=== PATIENT | male | born 1950 | race Caucasian/White ===

== ENCOUNTER 2018-02-03 17:18 | Emergency (ER) | payer MEDICARE ==
[~2018-02-03] VITALS: Ht 167.6 cm; Wt 86.2 kg
== END 2018-02-03 17:59 | disposition home or self-care (01) ==
LOC: ER 17:18
DX: S91.331A Puncture wound without foreign body, right foot, initial encounter (principal); Z23 Encounter for immunization; W45.0XXA Nail entering through skin, initial encounter
CPT/HCPCS: 90471; 90714; 99282

== ENCOUNTER 2019-12-14 08:06 | Inpatient (IN) | payer MEDICARE, OTHER ==
[~2019-12-14] VITALS: Ht 167.6 cm; Wt 53.0 kg
[2019-12-14 08:53] LABS: BASOPHILS ABSOLUTE AUTO 0.06 K/mm3 (0.00-0.23); BASOPHILS PERCENT AUTO 1 % (0-2); EOSINOPHILS ABSOLUTE AUTO 0.09 K/mm3 (0.00-0.68); EOSINOPHILS PERCENT AUTO 1 % (0-6); Hematocrit 45.2 % (37.0-53.0); Hemoglobin 15.3 g/dL (13.5-17.5); IMMATURE GRAN ABSOLUTE AUTO 0.03 K/mm3 (0.00-0.10); IMMATURE GRAN PERCENT AUTO 0 % (0-1); LYMPHOCYTES ABSOLUTE AUTO 1.26 K/mm3 (0.84-5.20); LYMPHOCYTES PERCENT AUTO 16 % (21-46); MONOCYTES ABSOLUTE AUTO 0.64 K/mm3 (0.16-1.47); MONOCYTES PERCENT AUTO 8 % (4-13); Mean Corpuscular HGB 33.6 pg (26.0-34.0); Mean Corpuscular HGB Conc 33.8 g/dL (31.5-36.5); Mean Corpuscular Volume 99 fL (80-100); Mean Platelet Volume 11.4 fL (9.1-12.4); NEUTROPHILS ABSOLUTE AUTO 6.01 K/mm3 (1.96-9.15); NEUTROPHILS PERCENT AUTO 74 % (41-73); Platelet Count 179 K/mm3 (150-400); RDW Coefficient Variation 14.7 % (11.7-14.2); RDW Standard Deviation 54.3 fL (35.1-46.3); Red Blood Cell Count 4.56 M/mm3 (4.30-5.90); White Blood Cell Count 8.09 K/mm3 (4.00-11.30)
[2019-12-14 09:32] LABS: Alanine Aminotransfer (ALT/SGP 24 U/L (12-78); Albumin, Blood 3.6 g/dL (3.4-5.0); Albumin/Globulin Ratio 0.9 (0.8-1.8); Alk Phos 102 U/L (50-136); Anion Gap 8 mmol/L (6-16); Aspartate Aminotrans (AST/SGOT 31 U/L (12-37); Bilirubin, Total 1.3 mg/dL (0.1-1.0); Blood Urea Nitrogen 25 mg/dL (8-24); Bun/Creatinine Ratio 20.2 (12.0-20.0); CO2, Blood 22 mmol/L (21-32); Calcium, Blood 9.1 mg/dL (8.5-10.1); Chloride, Blood 109 mmol/L (98-108); Creatinine, Blood 1.24 mg/dL (0.60-1.20); Globulin, Blood 3.8 g/dL (2.2-4.0); Glomerular Filtration Rate >60 (60-); Glucose, Blood 90 mg/dL (70-99); Potassium, Blood 3.9 mmol/L (3.5-5.5); Sodium, Blood 139 mmol/L (136-145); Total Protein, Blood 7.4 g/dL (6.4-8.2)
[2019-12-14 09:35] LABS: Troponin I 0.613 ng/mL (0.000-0.040)
--- NOTE | 2019-12-14 14:25 | NUR ---
echocardiogram complete
[2019-12-14 16:41] LABS: U Amphetamine Screen Not Detected; U Barbituate Screen Not Detected; U Benzodiazapine Screen Not Detected; U Buprenorphine Screen Not Detected; U Cannabinoids Screen Not Detected; U Cocaine Screen Not Detected; U Methadone Screen Not Detected; U Methamphetamine Screen Not Detected; U Opiates Screen Not Detected; U Oxycodone Screen Not Detected; U Phencyclidine Screen Not Detected; U Propoxyphene Screen Not Detected
--- NOTE | 2019-12-14 18:43 | NUR ---
SHIFT SUMMARY PT WAS ADMITTED THIS AFTERNOON FROM ED ON 3LNC, CRACKLES NOTED IN LUKE LOWER BASES. BIPAP WAS BROUGHT UP WITH PT, HOWEVER PT HAS NOT REQUIRED USE OF IT SINCE ARRIVING TO FLOOR. TELEMETERY HAS SHOWN PT SINUS RHYTHM. PT WAS HYPTENSIVE UPON ARRIVAL AND NEW ORDERS RECEIVED FROM DR YI AND IMPLEMENTED. PT HAS DENIED ANY CHEST PAIN. TROPONINS WERE TRENDING DOWN. HEPARIN GTT WAS INITIATED PER PHARMACY DOSING, SEE EMAR. PT PLANNED FOR ANIGOGRAM TOMORROW.
--- NOTE | 2019-12-14 20:00 | NUR ---
ASSUMED CARE OF PT AT 1915. REPORT RECEIVED AT BEDSIDE. PT PRESENTS IN BED. ALERT AND ORIENTED. PLEASANT AND COOPERATIVE WITH CARE AND ASSESSEMENT. DENIES CHEST PAIN OR PRESSURE. NO COMPLAINTS OF DYSPNEA. WILL REVIEW CHART AND PLAN OF CARE FOR THIS PT.
--- NOTE | 2019-12-14 23:01 | NUR ---
PT HAS SLIGHT ELEVATION IN TROPONIN TO 0.60 CONTINUES WITHOUT COMPLAINTS OF CHEST PAIN OR PRESSURE. HEART RATE HAS TRENDED DOWNWARDS TO OCCASSIONALLY 55 BPM. WILL MONITOR CLOSELY. PT DOES HAVE NITROPASTE TO HIS LEFT CHEST WALL. WILL REMOVE AND NOTIFY PROVIDER IF NEEDED. CONTINUES ON HEPARIN DRIP. PHARMACY HAS ORDERED ADJUSTMENT WHICH WILL BE DONE.
[2019-12-15 05:19] LABS: Hematocrit 40.3 % (37.0-53.0); Hemoglobin 13.5 g/dL (13.5-17.5); Mean Corpuscular HGB 33.7 pg (26.0-34.0); Mean Corpuscular HGB Conc 33.5 g/dL (31.5-36.5); Mean Corpuscular Volume 101 fL (80-100); Mean Platelet Volume 11.6 fL (9.1-12.4); Platelet Count 175 K/mm3 (150-400); RDW Coefficient Variation 14.7 % (11.7-14.2); RDW Standard Deviation 55.4 fL (35.1-46.3); Red Blood Cell Count 4.01 M/mm3 (4.30-5.90); White Blood Cell Count 8.96 K/mm3 (4.00-11.30)
[2019-12-15 05:46] LABS: Alanine Aminotransfer (ALT/SGP 23 U/L (12-78); Albumin, Blood 2.8 g/dL (3.4-5.0); Albumin/Globulin Ratio 0.8 (0.8-1.8); Alk Phos 82 U/L (50-136); Anion Gap 5 mmol/L (6-16); Aspartate Aminotrans (AST/SGOT 21 U/L (12-37); Bilirubin, Total 0.9 mg/dL (0.1-1.0); Blood Urea Nitrogen 45 mg/dL (8-24); Bun/Creatinine Ratio 28.5 (12.0-20.0); CHOL/HDL RATIO 2.3; CO2, Blood 28 mmol/L (21-32); Calcium, Blood 8.6 mg/dL (8.5-10.1); Chloride, Blood 105 mmol/L (98-108); Cholesterol 155 mg/dL (50-200); Creatinine, Blood 1.58 mg/dL (0.60-1.20); Globulin, Blood 3.3 g/dL (2.2-4.0); Glomerular Filtration Rate 46 (60-); Glucose, Blood 92 mg/dL (70-99); HDL Cholesterol 67 mg/dL (>39); LDL/HDL RATIO 1.2; Low Density Lipoprotein Chol 78 mg/dL (0-110); Magnesium, Blood 2.1 mg/dL (1.6-2.4); Potassium, Blood 4.3 mmol/L (3.5-5.5); Sodium, Blood 138 mmol/L (136-145); Total Protein, Blood 6.1 g/dL (6.4-8.2); Triglycerides 49 mg/dL (30-160); Very Low Density Lipoprot Chol 9 mg/dL (6-32)
--- NOTE | 2019-12-15 06:50 | NUR ---
PT HAS BEEN ABLE TO AMUBLATE TO BATHROOM TO VOID WITHOUT EXPERIENCING CHEST PAIN OR INCREASE IN DYSPNEA. VOIDS Q.S. 2 L/M O2 PER NASAL CANNUAL ADEQUATE TO KEEP SATURATIONS > 90 PERCENT. WILL CONTINUE TO MONITOR PT, AND WILL REPORT OFF TO ONCOMING RN.
--- NOTE | 2019-12-15 17:52 | NUR ---
SUMMARY NO ACUTE CHANGES NOTED. PT CONTINUES TO DENY CP/PRESSURE, VSS, O2 VIA NC @2 L. PT IS INDEPENDENT TO THE BATHROOM, VOIDING WNL, TOLERATING PO INTAKE. HEPARIN GTT INFUSING PER EMAR. CALL LIGHT IN REACH. WCTM
--- NOTE | 2019-12-16 05:59 | NUR ---
SHIFT SUMMARY PT A&O X4. VSS. MONITOR SHOWS SB-SR, HR 50's-70's. SPO2 > 92% ON 2L NC TITRATED TO 1L NC THIS SHIFT. PT DENIES CP/DISCOMFORT. PT NPO SINCE MIDNIGHT FOR POSSIBLE ANGIO TODAY. HEPARIN GTT INFUSING PER ORDERS. WILL CONTINUE TO MONITOR & PROVIDE CARE UNTIL REPORT OFF TO DAY SHIFT RN.
[2019-12-16 10:37] LABS: BASOPHILS ABSOLUTE AUTO 0.07 K/mm3 (0.00-0.23); BASOPHILS PERCENT AUTO 1 % (0-2); EOSINOPHILS PERCENT AUTO 1 % (0-6); Hematocrit 45.3 % (37.0-53.0); Hemoglobin 14.9 g/dL (13.5-17.5); IMMATURE GRAN ABSOLUTE AUTO 0.05 K/mm3 (0.00-0.10); IMMATURE GRAN PERCENT AUTO 1 % (0-1); LYMPHOCYTES ABSOLUTE AUTO 1.62 K/mm3 (0.84-5.20); LYMPHOCYTES PERCENT AUTO 15 % (21-46); MONOCYTES ABSOLUTE AUTO 0.82 K/mm3 (0.16-1.47); MONOCYTES PERCENT AUTO 7 % (4-13); Mean Corpuscular HGB 33.3 pg (26.0-34.0); Mean Corpuscular HGB Conc 32.9 g/dL (31.5-36.5); Mean Corpuscular Volume 101 fL (80-100); Mean Platelet Volume 11.4 fL (9.1-12.4); NEUTROPHILS ABSOLUTE AUTO 8.41 K/mm3 (1.96-9.15); NEUTROPHILS PERCENT AUTO 76 % (41-73); Platelet Count 189 K/mm3 (150-400); RDW Coefficient Variation 14.6 % (11.7-14.2); RDW Standard Deviation 54.9 fL (35.1-46.3); Red Blood Cell Count 4.48 M/mm3 (4.30-5.90); White Blood Cell Count 11.07 K/mm3 (4.00-11.30)
[2019-12-16 10:57] LABS: Bun/Creatinine Ratio 27.2 (12.0-20.0); Creatinine, Blood 1.36 mg/dL (0.60-1.20); Potassium, Blood 4.3 mmol/L (3.5-5.5)
--- NOTE | 2019-12-16 18:34 | NUR ---
SUMMARY PT REMAINS A&O X4, VSS, ON ROOM AIR. PT HAS A RIGHT RADIAL/BRACHIAL ACCESS SITE FROM THE ANGIODRAM, BOTH DRSG'S REMAIN C/D/I, NO HEMATOMA OR BLEEDING NOTED, CIRC WNL. PT CONTINUES TO DENY CHEST PAIN. PT IS TOLERATING PO INTAKE, VOIDING WNL, INDEPENDENT IN ROOM. PT WILL BE TRANSFERRED TO [facility] FOR HIGHER LEVEL OF CARE PER , PTS FAMILY HAS BEEN NOTIFIED, REPORT CALLED TO [facility] [employer] OPERATOR @1830. PT IS SITTING UP IN BED WATHVING TV AT THIS TIME, CALL LIGHT IN REACH. TRANSPORT SCHEDULED TO [facility] @1845, TM.
--- NOTE | 2019-12-16 19:33 | NUR ---
COBRA TRANSFER PT PICKED UP BY [facility], TAKEN BY AUGUSTO IN AMBULANCE @ 1930 W/ IV HEPARIN GTT INFUSING PER ORDERS. PT A&O X4. VSS. SPO2 > 92% ON RA. R RADIAL ACCESS SITE WNL W/ NO BLEEDING, NO HEMATOMA, ARM BOARD IN PLACE. R BRACHIAL ACCESS SITE WNL. DAY SHIFT RN REPORTED TO HAVE CALLED ACCEPTING RN @ [facility] PRIOR TO SHIFT CHANGE, SEE PREVIOUS NOTE.
== END 2019-12-16 19:34 | disposition short-term general hospital (02) | DRG 280 ==
LOC: ER 08:06 → PCU 12:11
PROVIDERS: Emergency Medicine; Nurse Practitioner Acute Care; ADMIT Internal Medicine
PROC: 5A09357 Assistance with Respiratory Ventilation, Less than 24 Consecutive Hours, Continuous Positive Airway Pressure (ICD-10-PCS; 2019-12-14)
PROC: 4A023N8 Measurement of Cardiac Sampling and Pressure, Bilateral, Percutaneous Approach (ICD-10-PCS; principal; 2019-12-16)
PROC: B2101ZZ Fluoroscopy of Single Coronary Artery using Low Osmolar Contrast (ICD-10-PCS; 2019-12-16)
PROC: B240ZZ3 Ultrasonography of Single Coronary Artery, Intravascular (ICD-10-PCS; 2019-12-16)
DX: I11.0 Hypertensive heart disease with heart failure (principal); J96.01 Acute respiratory failure with hypoxia; I21.29 ST elevation (STEMI) myocardial infarction involving other sites; N17.9 Acute kidney failure, unspecified; E44.0 Moderate protein-calorie malnutrition; Z68.1 Body mass index [BMI] 19.9 or less, adult; I50.23 Acute on chronic systolic (congestive) heart failure; J44.9 Chronic obstructive pulmonary disease, unspecified; F17.210 Nicotine dependence, cigarettes, uncomplicated; R40.2412 Glasgow coma scale score 13-15, at arrival to emergency department; I27.20 Pulmonary hypertension, unspecified; I42.9 Cardiomyopathy, unspecified; I25.10 Atherosclerotic heart disease of native coronary artery without angina pectoris
CPT/HCPCS: 36415; 71046; 76937; 80048; 80053; 80061; 83735; 83880; 84484; 85025; 85027; 85347; 85730; 92978; 93005; 93010; 93306; 93460; 94640; 94660; 94760; 94762; 96374; 99152; 99153; 99285-25; A9270; A9270-GY; C1753; C1769; C1887; C1894; J1644; J1940; J2250; J3010; J7030; J7040; Q9967

== ENCOUNTER 2022-03-27 13:08 | Emergency (ER) | payer MEDICARE, MEDICAID ==
[~2022-03-27] VITALS: Ht 170.2 cm; Wt 59.0 kg
[2022-03-27 14:09] LABS: BASOPHILS ABSOLUTE AUTO 0.08 K/mm3 (0.00-0.23); BASOPHILS PERCENT AUTO 1 % (0-2); EOSINOPHILS ABSOLUTE AUTO 0.15 K/mm3 (0.00-0.68); EOSINOPHILS PERCENT AUTO 1 % (0-6); Hematocrit 33.7 % (37.0-53.0); Hemoglobin 10.6 g/dL (13.5-17.5); IMMATURE GRAN ABSOLUTE AUTO 0.09 K/mm3 (0.00-0.10); IMMATURE GRAN PERCENT AUTO 1 % (0-1); LYMPHOCYTES ABSOLUTE AUTO 0.92 K/mm3 (0.84-5.20); LYMPHOCYTES PERCENT AUTO 7 % (21-46); MONOCYTES ABSOLUTE AUTO 0.69 K/mm3 (0.16-1.47); MONOCYTES PERCENT AUTO 5 % (4-13); Mean Corpuscular HGB 26.8 pg (26.0-34.0); Mean Corpuscular HGB Conc 31.5 g/dL (31.5-36.5); Mean Corpuscular Volume 85 fL (80-100); Mean Platelet Volume 10.4 fL (9.1-12.4); NEUTROPHILS ABSOLUTE AUTO 11.42 K/mm3 (1.96-9.15); NEUTROPHILS PERCENT AUTO 86 % (41-73); Platelet Count 176 K/mm3 (150-400); RDW Coefficient Variation 20.3 % (11.7-14.2); RDW Standard Deviation 63.4 fL (35.1-46.3); Red Blood Cell Count 3.96 M/mm3 (4.30-5.90); White Blood Cell Count 13.35 K/mm3 (4.00-11.30)
[2022-03-27 14:22] LABS: Bilirubin, Total 0.9 mg/dL (0.1-1.0); Bun/Creatinine Ratio 25.9 (12.0-20.0); Calcium, Blood 9.2 mg/dL (8.5-10.1); Creatinine, Blood 1.47 mg/dL (0.60-1.20); Potassium, Blood 4.1 mmol/L (3.5-5.5)
[2022-03-27] MEDS ORDERED: LIPITOR80 MG PO (15:13)
[2022-03-27] MEDS ORDERED: METOPROLOL SUCC25 MG PO (15:13)
[2022-03-27] MEDS ORDERED: IRBESARTAN75 M3 PO (15:13)
== END 2022-03-27 17:51 | disposition home or self-care (01) ==
LOC: ER 13:08
PROVIDERS: Physician Assistant
DX: R55 Syncope and collapse (principal); F17.210 Nicotine dependence, cigarettes, uncomplicated; Z88.8 Allergy status to other drugs, medicaments and biological substances; Z88.6 Allergy status to analgesic agent; Z79.899 Other long term (current) drug therapy; Z95.1 Presence of aortocoronary bypass graft
CPT/HCPCS: 36415; 71046; 80053; 83690; 83880; 84484; 85025; 93005; 93010

== ENCOUNTER 2024-01-17 11:07 | Inpatient (IN) | payer MEDICARE, MEDICAID ==
[~2024-01-17] VITALS: Ht 170.2 cm; Wt 66.9 kg
[~2024-01-17 11:07] MED LIST: IRBESARTAN75 M3 PO; LIPITOR80 MG PO; METOPROLOL SUCC25 MG PO
[2024-01-17 11:31] LABS: BASOPHILS ABSOLUTE AUTO 0.07 K/mm3 (0.00-0.23); BASOPHILS PERCENT AUTO 1 % (0-2); EOSINOPHILS ABSOLUTE AUTO 0.04 K/mm3 (0.00-0.68); EOSINOPHILS PERCENT AUTO 0 % (0-6); Hematocrit 38.4 % (37.0-53.0); Hemoglobin 12.9 g/dL (13.5-17.5); IMMATURE GRAN ABSOLUTE AUTO 0.14 K/mm3 (0.00-0.10); IMMATURE GRAN PERCENT AUTO 1 % (0-1); LYMPHOCYTES ABSOLUTE AUTO 0.49 K/mm3 (0.84-5.20); LYMPHOCYTES PERCENT AUTO 3 % (21-46); MONOCYTES ABSOLUTE AUTO 0.99 K/mm3 (0.16-1.47); MONOCYTES PERCENT AUTO 7 % (4-13); Mean Corpuscular HGB 33.6 pg (26.0-34.0); Mean Corpuscular HGB Conc 33.6 g/dL (31.5-36.5); Mean Corpuscular Volume 100 fL (80-100); Mean Platelet Volume 11.4 fL (9.1-12.4); NEUTROPHILS ABSOLUTE AUTO 12.85 K/mm3 (1.96-9.15); NEUTROPHILS PERCENT AUTO 88 % (41-73); Platelet Count 187 K/mm3 (150-400); RDW Coefficient Variation 18.6 % (11.7-14.2); RDW Standard Deviation 68.3 fL (35.1-46.3); Red Blood Cell Count 3.84 M/mm3 (4.30-5.90); White Blood Cell Count 14.58 K/mm3 (4.00-11.30)
[2024-01-17 11:52] LABS: Albumin, Blood 3.3 g/dL (3.4-5.0); Albumin/Globulin Ratio 0.7 (0.8-1.8); Bilirubin, Total 1.8 mg/dL (0.1-1.0); Bun/Creatinine Ratio 21.5 (12.0-20.0); Calcium, Blood 9.6 mg/dL (8.5-10.1); Creatinine, Blood 2.09 mg/dL (0.60-1.20); Globulin, Blood 4.6 g/dL (2.2-4.0); Potassium, Blood 4.5 mmol/L (3.5-5.5); Total Protein, Blood 7.9 g/dL (6.4-8.2)
[2024-01-17] MEDS ORDERED: NS 1,000 ML IV SCH (12:00)
[2024-01-17] MEDS ORDERED: Ipratropium/Albuterol SulF 2.5-0.5MG/3 ML Amp INH ONE (12:05)
[2024-01-17] MEDS ORDERED: Methocarbamol 500 MG Tab PO ONE (12:25)
[2024-01-17] MEDS ORDERED: Morphine Sulfate 4 MG/1 ML Injection IV ONE (12:25)
[2024-01-17] MEDS ORDERED: FentaNYL Citrate 50 MCG/ML 2 ML Injection IV ONE (12:25)
[2024-01-17 12:33] LABS: Base Excess Venous -3.8 mmol/L; Bicarbonate Venous 21.9 mmol/L (24.0-30.0); PCO2 Venous 33 mmHg (38-42); pH Blood Venous 7.41 (7.34-7.37)
[2024-01-17] MEDS ORDERED: CefTRIAXone Sodium 1,000 MG in NS 50 ML IV ONE (12:35)
[2024-01-17] MEDS ORDERED: Azithromycin 500 MG in NS 250 ML IV ONE (12:35)
[2024-01-17 13:07] LABS: Influenza A, PCR NEGATIVE (NEGATIVE); Influenza B, PCR NEGATIVE (NEGATIVE); Resp Syncytial Virus, PCR NEGATIVE (NEGATIVE); SARS-Cov-2 (COVID-19) PCR, MMC NEGATIVE (NEGATIVE)
[2024-01-17] MEDS ORDERED: Dose Adjust by Pharmacy XX STA (13:38)
[2024-01-17] MEDS ORDERED: Heparin Sodium 5000 Units/ML 1ML MDV IV ONE (13:40)
[2024-01-17 13:49] LABS: Anti-Xa UFH, PHA Monitoring <0.10 IU/mL; Prothrombin Time Results 10.7 Sec (9.7-11.5)
[2024-01-17] MEDS ORDERED: Heparin Sodium,Porcine/0.5 NS 500 ML IV SCH (14:00)
[2024-01-17] MEDS ORDERED: Acetaminophen 325 MG TABLET PO PRN (14:55)
[2024-01-17] MEDS ORDERED: Ipratropium/Albuterol SulF 2.5-0.5MG/3 ML Amp INH SCH (15:15)
[2024-01-17] MEDS ORDERED: Furosemide 10 MG / ML 2ML Vial IV ONE (16:00)
[2024-01-17] MEDS ORDERED: ChlordiazePOXIDE 25 MG Cap PO PRN (17:25)
[2024-01-17 17:31] VITALS: BP 121/80
[2024-01-17] MEDS ORDERED: FURO20 PO (17:32)
[2024-01-17] MEDS ORDERED: POTASSIUM GLU2.5 MEQ PO (17:34)
--- NOTE | 2024-01-17 17:59 | NUR ---
pt brought to 331 via gurney from ED, report from Chiara RN, pt is able to stand and tx to bed indep, he is very tremulous, a/ox4, pleasant and cooperative with care, follows commands well, denies pain at this time, lungs are clear t/o, on r/a, breathing becomes very labored with activity, resp even and somewhat labored, no cough noted, hrr, tachy, bounding, no edema noted, ppp+2, cap refill <3 sec, vs stable, afebrile, piv to rac site is clear and patent, btx4, abd flat soft nontender, voids without diff, skin c/w/d, beena, gordy, oriented to room layout and call system, call l light in reach.
[2024-01-17] MEDS ORDERED: Enoxaparin 30 MG/0.3 ML SYR SC SCH (18:00)
--- NOTE | 2024-01-17 18:34 | NUR ---
no acute changes, pt was given librium for the tremors, not much affect, call light in reach.
[2024-01-17 19:26] VITALS: BP 126/70
[2024-01-17] MEDS ORDERED: NS 500 ML IV SCH (19:50)
[2024-01-17] MEDS ORDERED: NS 500 ML IV ONE (21:05)
[2024-01-18] MEDS ORDERED: Albuterol 2.5 MG/3 ML VIAL INH PRN (00:50)
[2024-01-18 04:56] VITALS: BP 102/61
[2024-01-18 05:00] LABS: BASOPHILS ABSOLUTE AUTO 0.07 K/mm3 (0.00-0.23); BASOPHILS PERCENT AUTO 1 % (0-2); EOSINOPHILS ABSOLUTE AUTO 0.12 K/mm3 (0.00-0.68); EOSINOPHILS PERCENT AUTO 1 % (0-6); Hemoglobin 10.1 g/dL (13.5-17.5); IMMATURE GRAN ABSOLUTE AUTO 0.14 K/mm3 (0.00-0.10); IMMATURE GRAN PERCENT AUTO 1 % (0-1); LYMPHOCYTES ABSOLUTE AUTO 0.94 K/mm3 (0.84-5.20); LYMPHOCYTES PERCENT AUTO 8 % (21-46); MONOCYTES ABSOLUTE AUTO 0.93 K/mm3 (0.16-1.47); MONOCYTES PERCENT AUTO 8 % (4-13); Mean Corpuscular HGB 33.7 pg (26.0-34.0); Mean Corpuscular HGB Conc 32.6 g/dL (31.5-36.5); Mean Corpuscular Volume 103 fL (80-100); Mean Platelet Volume 11.3 fL (9.1-12.4); NEUTROPHILS ABSOLUTE AUTO 9.12 K/mm3 (1.96-9.15); NEUTROPHILS PERCENT AUTO 81 % (41-73); Platelet Count 153 K/mm3 (150-400); RDW Coefficient Variation 18.7 % (11.7-14.2); White Blood Cell Count 11.32 K/mm3 (4.00-11.30)
[2024-01-18 05:18] LABS: Albumin, Blood 2.6 g/dL (3.4-5.0); Albumin/Globulin Ratio 0.7 (0.8-1.8); Bilirubin, Total 0.9 mg/dL (0.1-1.0); Bun/Creatinine Ratio 27.2 (12.0-20.0); Calcium, Blood 8.6 mg/dL (8.5-10.1); Creatinine, Blood 2.02 mg/dL (0.60-1.20); Globulin, Blood 3.8 g/dL (2.2-4.0); Potassium, Blood 4.2 mmol/L (3.5-5.5); Total Protein, Blood 6.4 g/dL (6.4-8.2)
--- NOTE | 2024-01-18 05:59 | NUR ---
SHIFT SUMMARY: "R.C." IS A&OX4. VSS, MAINTAINING SATS ORA. PT DID HAVE AN EPISODE WHERE HE DESATURATED AFTER COUGHING FOR AN EXTENDED PERIOD WHICH RESOLVED AFTER A BREATHING TREATMENT. 2L OF O2 VIA NC WAS PLACED PRIOR TO BREATHING TX WHICH IMPROVED PT'S SATS TO > 90%. HE IS TOLERATING PO INTAKE WELL, DENIES ANY DIFFICULTY WITH ELIMINATION, AND IS INDEPDNENT IN THE ROOM. IV TO R AC PATENT. PT MEDICATED PER JUL FOR WITHDRAWAL, PLEASE SEE CORRESPONDING CIWA. HE IS LYING IN BED WITH THE CALL LIGHT IN REACH. WILL GIVE REPORT TO DAY SHIFT RN.
[2024-01-18 08:01] VITALS: BP 107/69
[2024-01-18] MEDS ORDERED: Nicotine 14 MG PATCH TOP PRN (09:00)
[2024-01-18] MEDS ORDERED: Multivitamins 1 Tab PO SCH (09:00)
[2024-01-18] MEDS ORDERED: Thiamine HCl 100 MG Tab PO SCH (09:00)
[2024-01-18] MEDS ORDERED: Folic Acid 1 MG TAB PO SCH (09:00)
[2024-01-18] MEDS ORDERED: Furosemide 10 MG/ML 4ML Vial IV ONE (12:06)
[2024-01-18] MEDS ORDERED: CefTRIAXone Sodium 1,000 MG in NS 100 ML IV SCH (13:00)
[2024-01-18] MEDS ORDERED: Azithromycin 500 MG in NS 250 ML IV SCH (13:30)
[2024-01-18 15:13] VITALS: BP 92/61
--- NOTE | 2024-01-18 17:38 | NUR ---
PT A&0 X4, ABLE TO MAKE NEEDS KNOWN. AMBULATED TO BATHROOM TODAY AND TOLERATING MEDICATIONS WELL. CIWA SCORE OF 2-8 THROUGHOUT THE DAY, Q2 HOURS. COMPLAINTS OF CHEST PAIN, POSSIBLY RELATED TO AGITATION EXPERIENCES FROM WITHDRAWAL. HAD ECHO PERFORMED TODAY. WILL CHANGE DIET FROM CCD TO HEART HEALTHY LONG CBG REMAIN IN CONTROL. CALL LIGHT WITHIN REACH.
[2024-01-18 19:44] LABS: Bun/Creatinine Ratio 27.9 (12.0-20.0); Creatinine, Blood 2.15 mg/dL (0.60-1.20); Potassium, Blood 4.1 mmol/L (3.5-5.5)
[2024-01-18 19:55] VITALS: BP 95/50
[2024-01-18] MEDS ORDERED: MethylPREDNISolone Sod Succ 125 MG Vial IV SCH (21:00)
[2024-01-19] VITALS (7 sets, daily range): BP systolic 101–135; BP diastolic 65–83
[2024-01-19 06:21] LABS: BASOPHILS ABSOLUTE AUTO 0.01 K/mm3 (0.00-0.23); BASOPHILS PERCENT AUTO 0 % (0-2); EOSINOPHILS PERCENT AUTO 0 % (0-6); Hematocrit 31.9 % (37.0-53.0); Hemoglobin 10.6 g/dL (13.5-17.5); IMMATURE GRAN PERCENT AUTO 1 % (0-1); LYMPHOCYTES ABSOLUTE AUTO 0.17 K/mm3 (0.84-5.20); LYMPHOCYTES PERCENT AUTO 2 % (21-46); MONOCYTES ABSOLUTE AUTO 0.14 K/mm3 (0.16-1.47); MONOCYTES PERCENT AUTO 2 % (4-13); Mean Corpuscular HGB 33.7 pg (26.0-34.0); Mean Corpuscular HGB Conc 33.2 g/dL (31.5-36.5); Mean Corpuscular Volume 101 fL (80-100); Mean Platelet Volume 11.6 fL (9.1-12.4); NEUTROPHILS PERCENT AUTO 96 % (41-73); Platelet Count 178 K/mm3 (150-400); RDW Coefficient Variation 18.5 % (11.7-14.2); RDW Standard Deviation 68.3 fL (35.1-46.3); Red Blood Cell Count 3.15 M/mm3 (4.30-5.90); White Blood Cell Count 9.52 K/mm3 (4.00-11.30)
[2024-01-19 06:45] LABS: Albumin, Blood 2.7 g/dL (3.4-5.0); Albumin/Globulin Ratio 0.7 (0.8-1.8); Bilirubin, Total 0.6 mg/dL (0.1-1.0); Calcium, Blood 8.5 mg/dL (8.5-10.1); Potassium, Blood 4.3 mmol/L (3.5-5.5); Total Protein, Blood 6.7 g/dL (6.4-8.2)
--- NOTE | 2024-01-19 06:46 | NUR ---
SHIFT SUMMARY: "R.C." IS A&OX4. VSS, MAINTAINING SATS >90% ON 2L VIA NC. PT HAS REPORTED GOOD SYMPTOM MANAGEMENT WITH MEDICATIONS PER MAR. HE IS ABLE TO SWALLOW HIS MEDICATIONS WHOLE WITH WATER WITHOUT DIFFICULTY AND IS TOLERATING PO INTAKE WELL. PT CONTINUES TO HAVE LOW URINE OUTPUT. HE IS IND/STANDBY ASSIST TO THE BATHROOM AND DENIES ANY DIFFICULTY WITH ELIMINATION, CONTINENT OF BLADDER AND BOWEL. HE IS LYING IN BED WITH THE CALL LIGHT IN REACH, BED IN LOWEST POSITION. WILL GIVE REPORT TO DAY SHIFT RN.
[2024-01-19] MEDS ORDERED: Furosemide 10 MG/ML 4ML Vial IV SCH (09:00)
[2024-01-19] MEDS ORDERED: Bumetanide 0.25 MG/ML 4ML ViaL IV SCH (11:00)
[2024-01-19] MEDS ORDERED: Insulin Human Lispro 100 Units/ML 3ML Syringe SC SCH (11:30)
--- NOTE | 2024-01-19 12:50 | NUR ---
TRANSFER PT A&O X4, COOPERATIVE, ON 2L O2. GAVE REPORT TO MACK HARRIS. ALL BELONGINGS, HOME MEDS, INSULIN, MEAL TRAY, AND CHART WERE TRANSFERED WITH PATIENT TO PCU 14. PT WAS TAKEN VIA WHEELCHAIR.
[2024-01-19 17:12] LABS: Bun/Creatinine Ratio 33.5 (12.0-20.0); Creatinine, Blood 2.15 mg/dL (0.60-1.20); Potassium, Blood 4.3 mmol/L (3.5-5.5)
--- NOTE | 2024-01-19 17:13 | NUR ---
PT IS ONE PERSON ASSIST IN ROOM, DUE TO SHORTNESS OF BREATH PT HAS BEEN ASKED TO USE URINAL AND BEDSIDE COMMODE. PT IS UPDATED THAT HE HAS PENDING TRANSFER FOR [facility]VE REPLACEMENT. VSS. HE IS ON 2-4L NASAL CANNULA. PT REPORTS THAT HE IS FROM [facility] AND IS IN TOWN VISITING HIS BROTHER HE IS CONCERNED ABOUT [facility] TRANSFER HIS BROTHER HAS NO WAY TO COME BE WITH HIM. PT DENIES CP, REPORTS THAT SOB IS UNCHANGED. SINUS TACH NOTED ON MONITOR.
--- NOTE | 2024-01-19 20:53 | NUR ---
ASSUMPTION OF CARE ASSUMED CARE OF THIS PT AT 1900. PT A&OX4, ABLE TO APPROPRIATELY EXPRESS HIS NEEDS. RECEIVING A BREATHING TX UPON INITIAL ASSESSMENT. FRAIL APPEARANCE, LABORED BREATHS, ACCESSORY MUSCLE USE NOTED. LUNG SOUNDS ARE COARSE WITH EXPIRATORY WHEEZE. 2-4L O2 VIA NC. HR 110'S. BP STABLE. HFrEF. OLIGURIA NOTED BY DAY TEAM. STILL AWAITING COBRA TRANSFER. REFUSED BY MULTIPLE FACILITIES.
[2024-01-19] MEDS ORDERED: Acetaminophen 650 MG Supp PR PRN (22:15)
[2024-01-20] VITALS (7 sets, daily range): BP systolic 90–143; BP diastolic 60–113
--- NOTE | 2024-01-20 05:46 | NUR ---
SHIFT SUMMARY PT RESTING WITH EYES CLOSED, EVEN CHEST RISE AND FALL. DYSPNEA AND ACCESSORY MUSCLE USE WHILE AT REST, UNCHANGED. NO ACUTE EVENTS OVERNIGHT.
[2024-01-20 06:33] LABS: Hematocrit 29.6 % (37.0-53.0); Hemoglobin 9.8 g/dL (13.5-17.5); Mean Corpuscular HGB 33.3 pg (26.0-34.0); Mean Corpuscular HGB Conc 33.1 g/dL (31.5-36.5); Mean Corpuscular Volume 101 fL (80-100); Mean Platelet Volume 11.4 fL (9.1-12.4); Platelet Count 184 K/mm3 (150-400); RDW Coefficient Variation 18.1 % (11.7-14.2); RDW Standard Deviation 67.1 fL (35.1-46.3); Red Blood Cell Count 2.94 M/mm3 (4.30-5.90); White Blood Cell Count 14.62 K/mm3 (4.00-11.30)
[2024-01-20 06:52] LABS: Albumin, Blood 2.8 g/dL (3.4-5.0); Albumin/Globulin Ratio 0.8 (0.8-1.8); Bilirubin, Total 0.4 mg/dL (0.1-1.0); Bun/Creatinine Ratio 35.7 (12.0-20.0); Calcium, Blood 8.7 mg/dL (8.5-10.1); Creatinine, Blood 2.1 mg/dL (0.60-1.20); Globulin, Blood 3.6 g/dL (2.2-4.0); Potassium, Blood 4.4 mmol/L (3.5-5.5); Total Protein, Blood 6.4 g/dL (6.4-8.2)
[2024-01-20] MEDS ORDERED: Furosemide 40 MG Tab PO SCH (09:00)
--- NOTE | 2024-01-20 15:52 | NUR ---
UPDATE PT REMAINS ALERT AND ORIENTED. BP STABLE. HR REMAINS SINUS TACH LOW 100'S TO 110'S. PT TACHYPNEIC WITH MINIMAL EXERTION THIS SHIFT. O2 SATS REMAIN ABOVE 90% ON 2L NC. PT UP TO BATHROOM NEEDED WITH GB AND FWW. PT TREMULOUS, BUT STATES HE HAS BEEN FOR MONTHS NOW. PT DENIES ANY PAIN. PT AWAITING TRANSFER TO [facility]. REPORT GIVEN TO ALICIA CHAPA TO ASSUME CARE
--- NOTE | 2024-01-20 16:00 | NUR ---
Assumtion of care: Report recieved from Marianela CHAPA, patient is resting in bed watching TV. He denies needs at this time. Call light in reach.
--- NOTE | 2024-01-20 20:51 | NUR ---
ASSUMPTION OF CARE: RECEIVED REPORT FROM CASSIDY CHAPA AT 1915. PT ALERT AND ORIENTED X 3-4. FOLLOWS COMMMANDS AND ANSWERS QUESTIONS. PT MUMBLES AT TIMES AND IS HARD TO UNDERSTAND. PT ON 3L NC WITH SPO2 HIGH 90'S. LUNGS COARSE AND WHEEZY. PT HAS TACHYPNEA WITH MINIMAL EXERTION. HAS FREQUENT DRY COUGH AND ENDORSES CHEST DISCOMFORT FROM ALL THE COUGHING. DENIES CHEST PAIN OR SOB. PORTABLE PINCH RIVETER IN PLACE, ST WITH HR 100'S. SBP 130'S. ABLE TO TOLERATE PO INTAKE. DENIES N/V. HAS CONTINUAL TREMOR NOTED IN ALL EXTREMETIES. PIV TO RAC, PATENT AND SALINE LOCKED. ABLE TO AMBULATE TO THE BATHROOM WITH MINIMAL ASSIST. VOIDS SMALL AMOUNTS OF YELLOW URINE. NO BM YET. BED LOW AND LOCKED, CALL LIGHT IN REACH.
[2024-01-20 21:21] LABS: Source, Urine Voided
[2024-01-20 21:28] LABS: Appearance, Urine Hazy (Clear); Bilirubin, Urine Neg (Neg); Blood, Urine 1+ (Neg); Glucose Qualitative, Urine Neg (Neg); Ketones, Urine Neg (Neg); Leukocyte Esterase, Urine Neg (Neg); Nitrite, Urine Neg (Neg); Protein, Urine 1+ (Neg); Specific Gravity, Urine 1.015 (1.003-1.022); Urobilinogen, Urine NORM (Normal)
[2024-01-20 21:58] LABS: Color, Urine Yellow (P-Yellow)
[2024-01-20 21:59] LABS: Bacteria Few /hpf; Hyaline Casts 0-2 /lpf (0-2); Red Blood Cells, Urine 0-2 /hpf (0-2); Squamous Epithelial Cells Few /hpf (Few); White Blood Cells, Urine 0-2 /hpf (0-5)
[2024-01-21 03:34] VITALS: BP 124/85
[2024-01-21 04:13] LABS: Hematocrit 32.5 % (37.0-53.0); Mean Corpuscular HGB 33.6 pg (26.0-34.0); Mean Corpuscular HGB Conc 33.8 g/dL (31.5-36.5); Mean Corpuscular Volume 99 fL (80-100); Mean Platelet Volume 11.5 fL (9.1-12.4); Platelet Count 221 K/mm3 (150-400); RDW Standard Deviation 66.1 fL (35.1-46.3); Red Blood Cell Count 3.27 M/mm3 (4.30-5.90); White Blood Cell Count 14.61 K/mm3 (4.00-11.30)
[2024-01-21 04:56] LABS: Bun/Creatinine Ratio 39.6 (12.0-20.0); Calcium, Blood 9.5 mg/dL (8.5-10.1); Creatinine, Blood 2.35 mg/dL (0.60-1.20); Percent Saturation 5.3 % (20.0-50.0); Potassium, Blood 4.7 mmol/L (3.5-5.5); Uric Acid, Blood 10.8 mg/dL (3.5-7.2)
--- NOTE | 2024-01-21 06:01 | NUR ---
SHIFT SUMMARY: NO ACUTE CHANGES OVERNIGHT. CONTINUES TO REMAIN ALERT AND ORIENTED. ABLE TO REST T/O THE NIGHT. REMAINS ON 3L NC WITH SPO2 MID 90'S. PT DESATTED TO HIGH 80'S A COUPLE OF TIMES T/O THE NIGHT BUT DID NOT SUSTAIN. PT ENDORSES SOB WITH ACTIVITY. ENDORSES CHEST DISCOMFORT FROM CONTINUED COUGHING T/O THE NIGHT. COUGH IS DRY AND NON-PRODUCTIVE. PT TACHYPNEIC AT REST, LUNGS REMAIN COARSE AND WHEEZY. PT REMAINS IN SR/ST WITH HR 90'S-100'S. SBP 120'S-140'S. DENIES CHEST PAIN. PT VERY ADAMENT ABOUT WALKING TO THE BATHROOM DESPITE BEING SOB AND UNSTEADY WHEN AMBULATING. PT ENCOURAGED TO USE THE BEDSIDE COMMODE OR URINAL BUT STATED HE WOULD NOT DO THAT. PT VOIDING VERY MINIMAL AMOUNT OF URINE T/O THE SHIFT. SMALL BM THIS SHIFT. PIV TO RAC, PATENT AND SALINE LOCKED. PT CONTINUES TO HAVE TREMOR NOTED IN ALL EXTREMETIES. TRANSFER CENTER CALLED FOR AN UPDATE THIS MORNING, STATED THE PT IS ON THE LIST AND THEY WILL CONTINUE TO TRY AND GET A BED FOR PT. BED LOW AND LOCKED, CALL LIGHT IN REACH.
[2024-01-21 07:19] VITALS: BP 155/97
--- NOTE | 2024-01-21 07:30 | NUR ---
AM ASSESSMENT: Pt sitting up at edge of bed. Frequent congested cough with labored and tachypnic breathing. LS with wheezing, rhonchi and scattered crackles. Pt has small amounts of frothy white sputum with scant green sputum within. Sample sent to lab. HR tachycardic, regular. BT hypoactive. Pulses palp. Trace edema in BLE. Pt states that he has some rib pain but denies wanting any tylenol for pain. BP elevated. Will inform physician. Pt A/Ox4, states that he has some numbness in his R arm and legs that has been there since his "hear surgery". Pt denies other needs. Call light in reach. Will continue to monitor.
[2024-01-21] MEDS ORDERED: Furosemide 10 MG/ML 4ML Vial IV SCH (09:00)
[2024-01-21 11:15] VITALS: BP 142/97
[2024-01-21 13:17] VITALS: BP 142/97
[2024-01-21 15:14] LABS: Bun/Creatinine Ratio 41.6 (12.0-20.0); Calcium, Blood 9.4 mg/dL (8.5-10.1); Creatinine, Blood 2.21 mg/dL (0.60-1.20); Potassium, Blood 4.6 mmol/L (3.5-5.5)
--- NOTE | 2024-01-21 15:37 | NUR ---
SOFIA/MARIO Pt cobra tx to [facility]. Pt notified his own family. Left via gurney with safety belt installer crew. Stable at time of transfer.
[2024-01-22] MEDS ORDERED: Metoprolol Succinate 25 MG TABCR PO SCH (09:00)
== END 2024-01-21 15:14 | disposition short-term general hospital (02) | DRG 871 ==
LOC: ER 11:07 → PCU 11:08 → MEDS 11:08 → PCU 01-19 12:37
PROVIDERS: Family Medicine Adult Medicine; Hospitalist; Physician Assistant; Student in an Organized Health Care Education/Training Program; ADMIT Internal Medicine
PROC: 3E03329 Introduction of Other Anti-infective into Peripheral Vein, Percutaneous Approach (ICD-10-PCS; principal; 2024-01-17)
PROC: 5A09357 Assistance with Respiratory Ventilation, Less than 24 Consecutive Hours, Continuous Positive Airway Pressure (ICD-10-PCS; 2024-01-17)
DX: A41.9 Sepsis, unspecified organism (principal); I50.23 Acute on chronic systolic (congestive) heart failure; J18.9 Pneumonia, unspecified organism; J96.01 Acute respiratory failure with hypoxia; J44.0 Chronic obstructive pulmonary disease with (acute) lower respiratory infection; N17.9 Acute kidney failure, unspecified; I13.0 Hypertensive heart and chronic kidney disease with heart failure and stage 1 through stage 4 chronic kidney disease, or unspecified chronic kidney disease; F10.239 Alcohol dependence with withdrawal, unspecified; I5A Non-ischemic myocardial injury (non-traumatic); J44.1 Chronic obstructive pulmonary disease with (acute) exacerbation; E87.20 Acidosis, unspecified; G62.9 Polyneuropathy, unspecified; G89.29 Other chronic pain; M54.9 Dorsalgia, unspecified; I25.10 Atherosclerotic heart disease of native coronary artery without angina pectoris; I65.29 Occlusion and stenosis of unspecified carotid artery; N18.32 Chronic kidney disease, stage 3b; D63.1 Anemia in chronic kidney disease; R65.20 Severe sepsis without septic shock; F17.210 Nicotine dependence, cigarettes, uncomplicated; I08.1 Rheumatic disorders of both mitral and tricuspid valves; Z95.2 Presence of prosthetic heart valve; Z98.890 Other specified postprocedural states; Z95.1 Presence of aortocoronary bypass graft; Z88.1 Allergy status to other antibiotic agents; Z88.8 Allergy status to other drugs, medicaments and biological substances; Z79.899 Other long term (current) drug therapy
CPT/HCPCS: 0241U; 36415; 71046; 80048; 80053; 81001; 82010; 82570; 82803; 82947; 83036; 83540; 83550; 83605; 83735; 83880; 84145; 84300; 84484; 84550; 85025; 85027; 85520; 85610; 85730; 87040; 87070; 87205; 92526; 92610; 93005; 93010; 93306; 94640; 94664; 94760; 94762; 96361; 96365; 96375; 97110; 97162; 97530; 99285-25; A9270; J0456; J0696; J1644; J1650; J1940; J2919; J7030; J7040; J7050